=== PATIENT | female | born 1995 | race Caucasian/White ===

== ENCOUNTER 2019-07-16 20:33 | Emergency (ER) | payer OTHER, SELFPAY ==
--- NOTE | 2019-07-16 21:27 | RAD ---
4 views of the left knee: 07/16/2019 COMPARISON: None HISTORY: Pain FINDINGS: No fracture or dislocation. No radiopaque foreign body or subcutaneous gas. IMPRESSION: No acute findings.
== END 2019-07-16 21:42 | disposition home or self-care (01) ==
LOC: NAV ERS 20:33
DX: M35.7 Hypermobility syndrome (principal); F41.9 Anxiety disorder, unspecified; F17.210 Nicotine dependence, cigarettes, uncomplicated; Z79.899 Other long term (current) drug therapy